=== PATIENT | male | born 1965 | race African-American/Black ===

== ENCOUNTER 2016-10-01 15:24 | Emergency (ER) | payer MEDICAID, OTHER ==
[2016-10-01] MEDS ORDERED: Ondansetron HCl/PF 4 MG/2 ML Vial ONE (15:54)
[2016-10-01] MEDS ORDERED: Sodium Chloride 0.9% 1,000 ML ONE (15:54)
[2016-10-01] MEDS ORDERED: traMADol HCl 50 MG TAB ONE (15:55)
[2016-10-01 16:00] LABS: #Basophils 0.1 thou/uL (0.0-0.2); #Monocytes 0.3 thou/uL (0.11-0.59); #Neutrophils 4.6 thou/uL (1.40-6.50); %Basophils 0.9 % (0.0-1.0); %Eosinophils 0.7 % (0.0-10.0); %Lymphocytes 16.9 % (21.0-51.0); %Monocytes 4.4 % (0.0-10.0); %Neutrophils 77.2 % (42.0-75.0); Hemoglobin 7.1 g/dL (14.0-18.0); Mean Corpuscular Hemoglobin 24.2 pg (27.0-31.0); Mean Corpuscular Volume 80.5 fl (80.0-94.0); Mean Platelet Volume 6.9 fL (7.4-10.4); Platelet Count 314 thou/uL (130-400); RBC Distribution Width 21.3 % (11.5-14.5); Red Blood Cell (RBC) Count 2.93 mill/uL (4.70-6.10); White Blood Cell (WBC) Count 5.9 thou/uL (4.8-10.8)
[2016-10-01 16:20] LABS: INR-International Normal Ratio 1.1; PTT 30.1 SEC (22.9-36.1)
== END 2016-10-01 16:48 | disposition short-term general hospital (02) ==
LOC: NAV ERS 15:24
DX: D62 Acute posthemorrhagic anemia (principal); I78.0 Hereditary hemorrhagic telangiectasia; Z79.1 Long term (current) use of non-steroidal anti-inflammatories (NSAID); Z79.899 Other long term (current) drug therapy
CPT/HCPCS: 85025; 85610; 85730; 96361; 96374; J2405; J7050

== ENCOUNTER 2019-03-02 14:32 | Emergency (ER) | payer OTHER ==
[2019-03-02 15:22] LABS: #Lymphocytes 0.3 thou/uL (1.20-3.40); #Monocytes 0.2 thou/uL (0.11-0.59); #Neutrophils 2.5 thou/uL (1.40-6.50); %Basophils 0.8 % (0.0-1.0); %Eosinophils 0.9 % (0.0-10.0); %Lymphocytes 10.5 % (21.0-51.0); %Monocytes 7.7 % (0.0-10.0); %Neutrophils 80.1 % (42.0-75.0); Mean Corpuscular HGB CONC 30.4 g/dL (32.0-36.0); Mean Corpuscular Hemoglobin 26.7 pg (27.0-31.0); Mean Corpuscular Volume 87.7 fL (78.0-98.0); Mean Platelet Volume 7.1 fL (7.4-10.4); Platelet Count 312 thou/uL (130-400); RBC Distribution Width 16.6 % (11.5-14.5); Red Blood Cell (RBC) Count 2.06 mill/uL (4.70-6.10); White Blood Cell (WBC) Count 3.1 thou/uL (4.8-10.8)
[2019-03-02 15:24] LABS: Hemoglobin 5.5 g/dL (14.0-18.0); INR-International Normal Ratio 1.2; Prothrombin Time 14.9 SEC (12.0-14.7)
[2019-03-02 15:25] LABS: PTT 33.8 SEC (22.9-36.1)
[2019-03-02 15:32] LABS: ALT (SGPT) 21 U/L (8-55); AST (SGOT) 19 U/L (5-34); Albumin 3.2 g/dL (3.5-5.0); Alkaline Phosphatase 63 U/L (40-110); Anion Gap 12 mmol/L (10-20); BUN (Urea Nitrogen) 12 mg/dL (8.4-25.7); Bilirubin, Total 0.5 mg/dL (0.2-1.2); Calc. Creatinine Clearance 0 mL/min (70-130); Calcium 7.9 mg/dL (7.8-10.44); Carbon Dioxide 25 mmol/L (22-29); Chloride 108 mmol/L (98-107); Estimated GFR-MDRD 82; Globulin 2.1 g/dL (2.4-3.5); Glucose 94 mg/dL (70-105); Potassium 3.7 mmol/L (3.5-5.1); Protein, Total 5.3 g/dL (6.0-8.3); Sodium 141 mmol/L (136-145)
[2019-03-02] MEDS ORDERED: Sodium Chloride 0.9% 500 ML ONE (16:29)
[2019-03-02] MEDS ORDERED: Acetaminophen 500 MG TAB ONE (18:23)
== END 2019-03-02 18:50 | disposition short-term general hospital (02) ==
LOC: NAV ERS 14:32
DX: R04.0 Epistaxis (principal); D64.9 Anemia, unspecified; Z79.899 Other long term (current) drug therapy
CPT/HCPCS: 36430; 80053; 85025; 85610; 85730; 86850; 86900; 86901; 86922; 99284; J7050; P9016

== ENCOUNTER 2019-03-10 14:00 | Emergency (ER) | payer OTHER ==
[2019-03-10 14:51] LABS: #Lymphocytes 0.3 thou/uL (1.20-3.40); #Monocytes 0.2 thou/uL (0.11-0.59); #Neutrophils 1.7 thou/uL (1.40-6.50); %Lymphocytes 13.3 % (21.0-51.0); %Monocytes 8.5 % (0.0-10.0); %Neutrophils 75.3 % (42.0-75.0); Hemoglobin 6.2 g/dL (14.0-18.0); Mean Corpuscular HGB CONC 31.2 g/dL (32.0-36.0); Mean Corpuscular Hemoglobin 27.1 pg (27.0-31.0); Mean Corpuscular Volume 86.9 fL (78.0-98.0); Mean Platelet Volume 6.9 fL (7.4-10.4); Platelet Count 208 thou/uL (130-400); RBC Distribution Width 16.5 % (11.5-14.5); Red Blood Cell (RBC) Count 2.27 mill/uL (4.70-6.10); White Blood Cell (WBC) Count 2.2 thou/uL (4.8-10.8)
[2019-03-10 15:01] LABS: INR-International Normal Ratio 1.2; Prothrombin Time 14.7 SEC (12.0-14.7)
[2019-03-10 15:02] LABS: PTT 40.3 SEC (22.9-36.1)
[2019-03-10 15:09] LABS: ALT (SGPT) 27 U/L (8-55); AST (SGOT) 24 U/L (5-34); Albumin 2.9 g/dL (3.5-5.0); Alkaline Phosphatase 60 U/L (40-110); Anion Gap 11 mmol/L (10-20); BUN (Urea Nitrogen) 16 mg/dL (8.4-25.7); Bilirubin, Total 0.3 mg/dL (0.2-1.2); Calc. Creatinine Clearance 0 mL/min (70-130); Calcium 7.6 mg/dL (7.8-10.44); Carbon Dioxide 23 mmol/L (22-29); Chloride 117 mmol/L (98-107); Estimated GFR-MDRD Greater than 90; Glucose 123 mg/dL (70-105); Potassium 3.6 mmol/L (3.5-5.1); Protein, Total 4.9 g/dL (6.0-8.3); Sodium 147 mmol/L (136-145)
[2019-03-10] MEDS ORDERED: Pantoprazole 40 MG VIAL ONE (16:36)
[2019-03-10] MEDS ORDERED: Sodium Chloride 0.9% 500 ML ONE (17:14)
== END 2019-03-10 17:40 | disposition short-term general hospital (02) ==
LOC: NAV ERS 14:00
DX: K92.1 Melena (principal); D64.9 Anemia, unspecified; I78.0 Hereditary hemorrhagic telangiectasia; Z86.19 Personal history of other infectious and parasitic diseases; Z79.899 Other long term (current) drug therapy
CPT/HCPCS: 80053; 82274; 85025; 85610; 85730; 86850; 86900; 86901; 96374; C9113; J7050

== ENCOUNTER 2020-06-22 09:15 | Emergency (ER) | payer OTHER ==
[2020-06-22 09:55] LABS: #Lymphocytes 0.4 thou/uL (1.20-3.40); #Monocytes 0.4 thou/uL (0.11-0.59); #Neutrophils 5.9 thou/uL (1.40-6.50); %Basophils 0.7 % (0.0-1.0); %Lymphocytes 6.1 % (21.0-51.0); %Neutrophils 87.2 % (42.0-75.0); Hemoglobin 6.7 g/dL (14.0-18.0); Mean Corpuscular HGB CONC 26.4 g/dL (32.0-36.0); Mean Corpuscular Hemoglobin 25.2 pg (27.0-31.0); Mean Corpuscular Volume 95.8 fL (78.0-98.0); Mean Platelet Volume 8.3 fL (7.4-10.4); Platelet Count 292 thou/uL (130-400); RBC Distribution Width 16.4 % (11.5-14.5); Red Blood Cell (RBC) Count 2.65 mill/uL (4.70-6.10); White Blood Cell (WBC) Count 6.7 thou/uL (4.8-10.8)
[2020-06-22 09:59] LABS: INR-International Normal Ratio 1.2; PTT 33.6 sec (22.9-36.1); Prothrombin Time 15.2 sec (12.0-14.7)
[2020-06-22 10:09] LABS: ALT (SGPT) 29 U/L (8-55); AST (SGOT) 27 U/L (5-34); Albumin 3.6 g/dL (3.5-5.0); Alkaline Phosphatase 64 U/L (40-110); Anion Gap 20 mmol/L (10-20); BUN (Urea Nitrogen) 16 mg/dL (8.4-25.7); Bilirubin, Total 0.6 mg/dL (0.2-1.2); Calc. Creatinine Clearance 0 mL/min (70-130); Calcium 8.2 mg/dL (7.8-10.44); Carbon Dioxide 14 mmol/L (22-29); Chloride 107 mmol/L (98-107); Globulin 2.7 g/dL (2.4-3.5); Glucose 82 mg/dL (70-105); Protein, Total 6.3 g/dL (6.0-8.3); Sodium 137 mmol/L (136-145)
== END 2020-06-22 10:51 | disposition short-term general hospital (02) ==
LOC: NAV ERS 09:15
DX: D50.0 Iron deficiency anemia secondary to blood loss (chronic) (principal); R04.0 Epistaxis; I78.0 Hereditary hemorrhagic telangiectasia
CPT/HCPCS: 71045; 80053; 85025; 85610; 85730; 93005; 94760